=== PATIENT | male | born 1950 | race Caucasian/White ===

== ENCOUNTER 2021-07-05 13:29 | Emergency (ER) | payer MEDICARE, OTHER ==
[~2021-07-05 13:29] MED LIST: ASPIRIN EC81 M1 PO; CO-ENZYME Q101 EACH PO; CRESTOR10 M1 PO; ELIQUIS5 MG PO; HCTZ12.5 MG PO; METOPROLOL TA37.5 MG PO; REPATHA SU140 MG/1 M IJ
[2021-07-05 13:56] LABS: BASOPHIL 0.6 % (0-2); EOSINOPHIL 2.2 % (0-7); HCT 41.3 % (42.0-52.0); LYMPHOCYTE 27.5 % (15-48); MCH 32.4 pg (25.0-31.0); MCHC 33.9 g/dL (32.0-36.0); MCV 95.6 fL (78.0-100.0); MONOCYTE 9.7 % (0-12); MPV 9.3 fL (6.0-9.5); NEUTROPHIL 59.8 % (41-80); NRBC 0; PLT 137 K/uL (150-400); RBC 4.32 M/uL (4.70-6.00); RDW 13.4 % (11.5-14.0); WBC 4.9 K/uL (4.0-10.5)
[2021-07-05 14:27] LABS: BUN/CREAT RATIO (CALC) 11.7 RATIO; CREATININE 1.37 mg/dL (0.67-1.17); POTASSIUM 4.2 mmol/L (3.5-5.1)
== END 2021-07-05 15:30 | disposition left against medical advice (07) ==
LOC: FER 13:29
PROVIDERS: Nurse Practitioner Family
DX: L03.116 Cellulitis of left lower limb (principal); I48.91 Unspecified atrial fibrillation; Z79.01 Long term (current) use of anticoagulants; Z53.29 Procedure and treatment not carried out because of patient's decision for other reasons
CPT/HCPCS: 36415; 80048; 85025; 93971